=== PATIENT | male | born 2000 | race Caucasian/White ===

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

== ENCOUNTER 2018-12-02 14:18 | Emergency (ER) | payer OTHER ==
[~2018-12-02] VITALS: Ht 182.9 cm; Wt 54.4 kg
[~2018-12-02 14:18] MED LIST changes: +FLEXERIL PO; +MEDROLDOSEPACK PO
[2018-12-02 14:24] VITALS: BP 116/84
[2018-12-02 14:44] LABS: URINE BILIRUBIN NEGATIVE (Negative); URINE BLOOD NEGATIVE (Negative); URINE CLARITY CLEAR; URINE COLOR YELLOW; URINE GLUCOSE-RANDOM* NEGATIVE (Negative); URINE KETONES NEGATIVE (Negative); URINE LEUKOCYTES-REFLEX TRACE (Negative); URINE NITRITE-REFLEX NEGATIVE (Negative); URINE PROTEIN (DIPSTICK) NEGATIVE (Negative); URINE SPECIFIC GRAVITY 1.015 (1.005-1.035); URINE UROBILINOGEN 0.2 E.U./dl (0.2-1.0)
[2018-12-02 14:50] LABS: ABSOLUTE NEUTROPHILS 3.9 thou/uL (1.4-8.2); BASOPHILS 0.7 % (0.0-2.0); EOSINOPHILS 1.2 % (0.0-3.0); HEMATOCRIT 45.3 % (42.0-52.0); LYMPHOCYTES 33.3 % (24.0-44.0); MCH 32.7 pg (26.0-34.0); MCHC 35.2 g/dL (28.0-37.0); MCV 92.9 fL (80.0-100.0); MONOCYTES 5.9 % (1.0-8.0); PLATELET COUNT 191 thou/uL (150-400); POLYS 58.9 % (36.0-66.0); RBC 4.88 mil/uL (4.50-6.00); RDW 12.5 % (10.5-14.5); WBC 6.6 thou/uL (4.0-11.0)
[2018-12-02 15:15] LABS: CREATININE 1.1 mg/dL (0.7-1.3); POTASSIUM 4.1 mmol/L (3.5-5.1)
== END 2018-12-02 15:30 | disposition home or self-care (01) ==
LOC: ER 14:18
PROVIDERS: Nurse Practitioner Family
DX: K92.1 Melena (principal); J45.909 Unspecified asthma, uncomplicated; Z91.048 Other nonmedicinal substance allergy status

== ENCOUNTER 2019-03-03 07:52 | Emergency (ER) | payer OTHER ==
[~2019-03-03] VITALS: Ht 182.9 cm; Wt 63.5 kg
[2019-03-03] MEDS ORDERED: ONDANSETRON ODT8 MG PO (08:08)
[2019-03-03] MEDS ORDERED: BUTALB-APAP-CA1 EACH PO (08:08)
[2019-03-03 08:21] LABS: AMP/METHAMP Negative (Negative); BARBITURATES Negative (Negative); BENZODIAZEPINES Negative (Negative); COCAINE Negative (Negative); METHADONE Negative (Negative); OPIATES Negative (Negative); PCP Negative (Negative)
[2019-03-03 09:06] VITALS: BP 121/62
== END 2019-03-03 09:07 | disposition home or self-care (01) ==
LOC: ER 07:52
PROVIDERS: Emergency Medicine
DX: R51 Headache (principal); R11.2 Nausea with vomiting, unspecified; J45.909 Unspecified asthma, uncomplicated; Z88.8 Allergy status to other drugs, medicaments and biological substances; Z79.899 Other long term (current) drug therapy

== ENCOUNTER 2019-11-26 18:46 | Emergency (ER) | payer OTHER ==
[~2019-11-26] VITALS: Ht 182.9 cm; Wt 61.2 kg
[~2019-11-26 18:46] MED LIST changes: +BUTALB-APAP-CA1 EACH PO; +ONDANSETRON ODT8 MG PO
[2019-11-26 19:10] LABS: URINE BILIRUBIN NEGATIVE (Negative); URINE BLOOD NEGATIVE (Negative); URINE CLARITY CLEAR; URINE COLOR YELLOW; URINE GLUCOSE-RANDOM* NEGATIVE (Negative); URINE KETONES TRACE (Negative); URINE LEUKOCYTES-REFLEX NEGATIVE (Negative); URINE NITRITE-REFLEX NEGATIVE (Negative); URINE PROTEIN (DIPSTICK) NEGATIVE (Negative); URINE UROBILINOGEN 0.2 E.U./dl (0.2-1.0)
[2019-11-26 19:34] LABS: ABSOLUTE NEUTROPHILS 4.2 thou/uL (1.4-8.2); BASOPHILS 0.9 % (0.0-2.0); EOSINOPHILS 1.2 % (0.0-3.0); HEMATOCRIT 48.3 % (42.0-52.0); HEMOGLOBIN 16.9 gm/dL (14.0-18.0); LYMPHOCYTES 22.7 % (24.0-44.0); MCH 33.4 pg (26.0-34.0); MCV 95.3 fL (80.0-100.0); MONOCYTES 9.4 % (1.0-8.0); PLATELET COUNT 181 thou/uL (150-400); POLYS 65.8 % (36.0-66.0); RBC 5.06 mil/uL (4.50-6.00); RDW 12.4 % (10.5-14.5); WBC 6.4 thou/uL (4.0-11.0)
[2019-11-26 19:37] LABS: CALCIUM 9.5 mg/dL (8.5-10.1); CREATININE 1.2 mg/dL (0.7-1.3); POTASSIUM 3.6 mmol/L (3.5-5.1)
[2019-11-26 19:38] LABS: AMP/METHAMP Negative (Negative); BARBITURATES Negative (Negative); BENZODIAZEPINES Negative (Negative); COCAINE Negative (Negative); METHADONE Negative (Negative); OPIATES Negative (Negative); PCP Negative (Negative)
[2019-11-26 19:43] LABS: ALBUMIN 4.7 g/dL (3.4-5.0); TOTAL BILIRUBIN 0.9 mg/dL (<0.1-1.0)
[2019-11-26] MEDS ORDERED: ZOFRAN ODT4 MG PO (20:28)
[2019-11-26] MEDS ORDERED: PROBIOTIC1 EAC7 PO (20:28)
[2019-11-26 21:16] VITALS: BP 109/49
== END 2019-11-26 21:17 | disposition home or self-care (01) ==
LOC: ER 18:46
PROVIDERS: Emergency Medicine; Nurse Practitioner Family
DX: R11.2 Nausea with vomiting, unspecified (principal); R19.7 Diarrhea, unspecified; R53.1 Weakness; R10.9 Unspecified abdominal pain; R61 Generalized hyperhidrosis; J45.909 Unspecified asthma, uncomplicated; Z79.899 Other long term (current) drug therapy

== ENCOUNTER 2020-02-10 14:25 | Emergency (ER) | payer OTHER ==
[~2020-02-10] VITALS: Ht 188 cm; Wt 63.5 kg
[~2020-02-10 14:25] MED LIST changes: +PROBIOTIC1 EAC7 PO; +ZOFRAN ODT4 MG PO
[2020-02-10] MEDS ORDERED: IBU600 MG PO (16:43)
[2020-02-10 17:03] VITALS: BP 112/70
[2020-02-11] MEDS ORDERED: MOBIC15 MG PO (16:51)
== END 2020-02-10 17:01 | disposition home or self-care (01) ==
LOC: ER 14:25
DX: G43.909 Migraine, unspecified, not intractable, without status migrainosus (principal); R11.10 Vomiting, unspecified; J45.909 Unspecified asthma, uncomplicated; Z79.899 Other long term (current) drug therapy; Z91.048 Other nonmedicinal substance allergy status

== ENCOUNTER 2020-02-11 15:46 | Emergency (ER) | payer OTHER ==
[~2020-02-11] VITALS: Ht 182.9 cm; Wt 63.5 kg
[~2020-02-11 15:46] MED LIST changes: +IBU600 MG PO
[2020-02-11 15:49] VITALS: BP 134/72
[2020-02-11] MEDS ORDERED: MOBIC15 MG PO (16:51)
== END 2020-02-11 16:54 | disposition home or self-care (01) ==
LOC: ER 15:46
DX: M25.512 Pain in left shoulder (principal); J45.909 Unspecified asthma, uncomplicated; Z79.899 Other long term (current) drug therapy; Z91.048 Other nonmedicinal substance allergy status

== ENCOUNTER 2020-02-16 11:56 | Emergency (ER) | payer OTHER ==
[~2020-02-16] VITALS: Ht 182.9 cm; Wt 63.5 kg
[2020-02-16 13:00] VITALS: BP 109/63
== END 2020-02-16 13:01 | disposition home or self-care (01) ==
LOC: ER 11:56
DX: M25.512 Pain in left shoulder (principal); J45.909 Unspecified asthma, uncomplicated; G43.909 Migraine, unspecified, not intractable, without status migrainosus; Z79.1 Long term (current) use of non-steroidal anti-inflammatories (NSAID); Z79.899 Other long term (current) drug therapy; Z91.048 Other nonmedicinal substance allergy status; Z90.89 Acquired absence of other organs

== ENCOUNTER 2020-04-16 18:31 | Emergency (ER) | payer OTHER ==
[~2020-04-16] VITALS: Ht 182.9 cm; Wt 63.5 kg
[2020-04-16 18:52] VITALS: BP 119/67
[2020-04-16] MEDS ORDERED: IBUPROFEN 600600 M1 PO (20:11)
== END 2020-04-16 20:20 | disposition home or self-care (01) ==
LOC: ER 18:31
DX: S60.221A Contusion of right hand, initial encounter (principal); J45.909 Unspecified asthma, uncomplicated; G43.909 Migraine, unspecified, not intractable, without status migrainosus; Z79.899 Other long term (current) drug therapy; Z91.048 Other nonmedicinal substance allergy status; W18.39XA Other fall on same level, initial encounter; Y93.89 Activity, other specified; Y92.89 Other specified places as the place of occurrence of the external cause; Y99.8 Other external cause status

== ENCOUNTER 2020-08-14 07:03 | Emergency (ER) | payer OTHER ==
[~2020-08-14] VITALS: Ht 182.9 cm; Wt 68.0 kg
[~2020-08-14 07:03] MED LIST changes: +IBUPROFEN 600600 M1 PO
[2020-08-14 07:22] VITALS: BP 152/64
== END 2020-08-14 08:11 | disposition home or self-care (01) ==
LOC: ER 07:03
DX: B34.9 Viral infection, unspecified (principal); J45.909 Unspecified asthma, uncomplicated; G43.909 Migraine, unspecified, not intractable, without status migrainosus; Z79.1 Long term (current) use of non-steroidal anti-inflammatories (NSAID); Z79.899 Other long term (current) drug therapy; Z88.8 Allergy status to other drugs, medicaments and biological substances; Z91.048 Other nonmedicinal substance allergy status; Z20.828 Contact with and (suspected) exposure to other viral communicable diseases

== ENCOUNTER 2020-09-12 15:36 | Emergency (ER) | payer OTHER ==
[~2020-09-12] VITALS: Ht 182.9 cm; Wt 63.5 kg
[2020-09-12] MEDS ORDERED: ONDANSETRON HCL4 M2 PO (20:28)
[2020-09-12] MEDS ORDERED: PENICILLIN V P500 MG PO (20:28)
[2020-09-12 21:04] VITALS: BP 106/64
== END 2020-09-12 21:04 | disposition home or self-care (01) ==
LOC: ER 15:36
DX: R50.9 Fever, unspecified (principal); Z20.828 Contact with and (suspected) exposure to other viral communicable diseases; J02.9 Acute pharyngitis, unspecified; J45.909 Unspecified asthma, uncomplicated; G43.909 Migraine, unspecified, not intractable, without status migrainosus; Z79.899 Other long term (current) drug therapy

== ENCOUNTER 2020-11-01 23:30 | Emergency (ER) | payer OTHER ==
[~2020-11-01] VITALS: Ht 182.9 cm; Wt 63.5 kg
[~2020-11-01 23:30] MED LIST changes: +ONDANSETRON HCL4 M2 PO
[2020-11-01] MEDS ORDERED: CLARITIN10 M3 PO (23:54)
[2020-11-02 00:38] LABS: ABSOLUTE NEUTROPHILS 8.1 thou/uL (1.4-8.2); BASOPHILS 0.3 % (0.0-2.0); CALCIUM 8.8 mg/dL (8.5-10.1); CREATININE 1.2 mg/dL (0.7-1.3); HEMATOCRIT 45.4 % (42.0-52.0); LYMPHOCYTES 9.5 % (24.0-44.0); MCH 33.7 pg (26.0-34.0); MCHC 35.2 g/dL (28.0-37.0); MCV 95.7 fL (80.0-100.0); MONOCYTES 9.4 % (1.0-8.0); PLATELET COUNT 174 thou/uL (150-400); POLYS 80.8 % (36.0-66.0); POTASSIUM 3.1 mmol/L (3.5-5.1); RBC 4.75 mil/uL (4.50-6.00); RDW 12.8 % (10.5-14.5)
[2020-11-02] MEDS ORDERED: REGLAN10 MG PO (01:44)
[2020-11-02 01:49] VITALS: BP 111/64
== END 2020-11-02 01:53 | disposition home or self-care (01) ==
LOC: ER 23:30
PROVIDERS: Emergency Medicine
DX: B34.9 Viral infection, unspecified (principal); E87.6 Hypokalemia; J45.909 Unspecified asthma, uncomplicated; G43.909 Migraine, unspecified, not intractable, without status migrainosus; Z79.899 Other long term (current) drug therapy; Z91.048 Other nonmedicinal substance allergy status; Z20.822 Contact with and (suspected) exposure to COVID-19